=== PATIENT | female | born 1940 | race Caucasian/White ===

== ENCOUNTER → 2021-01-24 | Outpatient (CLI) | payer MEDICARE ==
--- NOTE | 2021-01-24 11:39 | REP ---
INDICATION: LOW BACK PAIN X 2-3 MONTHS COMPARISON: None. TECHNIQUE: AP, lateral, bilateral oblique, and coned-down views of the lumbar spine. FINDINGS: Age-related osteopenia and advanced multilevel degenerative changes include osteophytosis, endplate sclerosis, disc space narrowing and facet hypertrophy. Lateral views demonstrate mild grade 1 chronic appearing anterolisthesis at the L4-5 level of approximately 4.5 mm. No obvious acute fracture/compression injury. IMPRESSION: Advanced multilevel degenerative changes as noted above. <Electronically signed by Jose F Antoine > 01/24/21 [id number]
== END ==
LOC: M WUC 11:08
PROVIDERS: ATTEND Physician Assistant
DX: M54.5 Low back pain (principal)

== ENCOUNTER → 2021-04-24 | Outpatient (CLI) | payer MEDICARE ==
--- NOTE | 2021-04-24 12:07 | REP ---
INDICATION: PAIN. COMPARISON: None. TECHNIQUE: Three views left shoulder. FINDINGS: There is no acute fracture or dislocation. There is mild spurring at the acromioclavicular joint. Ill-defined calcifications are seen along the superior margin of the humeral head suggesting tendinous calcifications and calcific tendinitis. IMPRESSION: There are findings suggestive of calcific tendinitis. Mild spurring at the AC joint. <Electronically signed by Rivera Corona > 04/24/21 [id number]
== END ==
LOC: M WUC 11:12
PROVIDERS: ATTEND Physician Assistant
DX: M25.511 Pain in right shoulder (principal); M75.32 Calcific tendinitis of left shoulder

== ENCOUNTER → 2021-11-28 | Outpatient (REF) | payer MEDICARE | LOC: M LAB REF 18:05 | PROVIDERS: ATTEND Nurse Practitioner Family | DX: C44.622 Squamous cell carcinoma of skin of right upper limb, including shoulder (principal) ==

== ENCOUNTER → 2021-12-31 | Outpatient (REF) | payer MEDICARE | LOC: M LAB REF 17:46 | PROVIDERS: ATTEND Surgery | DX: C44.622 Squamous cell carcinoma of skin of right upper limb, including shoulder (principal) ==

== ENCOUNTER → 2024-02-05 | Outpatient (CLI) | payer MEDICARE | LOC: M WUC 15:45 | PROVIDERS: ATTEND Physician Assistant | DX: R06.02 Shortness of breath (principal); R06.2 Wheezing ==

== ENCOUNTER → 2024-08-11 | Outpatient (CLI) | payer MEDICARE | LOC: M WUC 10:11 | PROVIDERS: ATTEND Student in an Organized Health Care Education/Training Program | DX: S20.162A Insect bite (nonvenomous) of breast, left breast, initial encounter (principal); W18.30XA Fall on same level, unspecified, initial encounter; Y92.009 Unspecified place in unspecified non-institutional (private) residence as the place of occurrence of the external cause ==

== ENCOUNTER → 2024-10-11 | Outpatient (CLI) | payer MEDICARE | LOC: M WUC 15:17 | PROVIDERS: ATTEND Physician Assistant | DX: M25.532 Pain in left wrist (principal); M19.232 Secondary osteoarthritis, left wrist ==

== ENCOUNTER → 2025-07-06 | Outpatient (CLI) | payer MEDICARE | LOC: M WUC 13:22 | PROVIDERS: ATTEND Family Medicine | DX: R05.9 Cough, unspecified (principal); R06.02 Shortness of breath ==